=== PATIENT | female | born 1995 | race Caucasian/White ===

== ENCOUNTER 2018-01-11 16:52 | Emergency (ER) | payer MEDICAID ==
[~2018-01-11] VITALS: Ht 160 cm; Wt 86.4 kg
[2018-01-11] MEDS ORDERED: KETOROLAC TROMETHAMINE 30 MG/ML VIAL IM ONE (21:15)
[2018-01-11] MEDS ORDERED: LIDOCAINE HCL 5% TRANSDERMAL PATCH TD ONE (21:15)
[2018-01-11] MEDS ORDERED: METHOCARBAMOL 500 MG TABLET PO ONE (21:15)
[2018-01-11 23:17] VITALS: BP 137/62
== END 2018-01-11 23:21 | disposition home or self-care (01) ==
LOC: EMS 16:52
DX: M54.2 Cervicalgia (principal); M79.672 Pain in left foot; R03.0 Elevated blood-pressure reading, without diagnosis of hypertension; V49.40XA Driver injured in collision with unspecified motor vehicles in traffic accident, initial encounter; Y93.89 Activity, other specified; Y92.89 Other specified places as the place of occurrence of the external cause; Y99.8 Other external cause status
CPT/HCPCS: 72040; 73610; 73630; 81025; 96372; 99284; J1885

== ENCOUNTER 2019-02-04 21:22 | Emergency (ER) | payer MEDICAID, OTHER ==
[~2019-02-04] VITALS: Ht 160 cm; Wt 90.9 kg
[2019-02-04] MEDS ORDERED: CETI10TA59 PO (21:52)
[2019-02-05 01:32] LABS: INFLUENZA TYPE A NEGATIVE FOR TYPE A (NEGATIVE); INFLUENZA TYPE B NEGATIVE FOR TYPE B (NEGATIVE)
[2019-02-05] MEDS ORDERED: PredniSONE 20 MG TABLET PO ONE (01:45)
[2019-02-05 02:13] VITALS: BP 110/84
== END 2019-02-05 02:16 | disposition home or self-care (01) ==
LOC: EMS 21:23
DX: R05 Cough (principal)
CPT/HCPCS: 71046; 81025; 87804; 93005; 99284; J7512

== ENCOUNTER 2019-12-24 21:36 | Emergency (ER) | payer OTHER ==
[~2019-12-24] VITALS: Ht 172.7 cm; Wt 95.0 kg
[~2019-12-24 21:36] MED LIST: CETI-450 PO
[2019-12-24] MEDS ORDERED: KETOROLAC TROMETHAMINE 60 MG/2 ML VIAL IM ONE (23:30)
[2019-12-24 23:52] VITALS: BP 116/74
== END 2019-12-25 00:08 | disposition home or self-care (01) ==
LOC: EMS 21:36
DX: S13.4XXA Sprain of ligaments of cervical spine, initial encounter (principal); S46.912A Strain of unspecified muscle, fascia and tendon at shoulder and upper arm level, left arm, initial encounter; V49.9XXA Car occupant (driver) (passenger) injured in unspecified traffic accident, initial encounter; Y93.89 Activity, other specified; Y92.89 Other specified places as the place of occurrence of the external cause; Y99.8 Other external cause status
CPT/HCPCS: Z7502

== ENCOUNTER 2020-01-24 02:20 | Emergency (ER) | payer OTHER ==
[~2020-01-24] VITALS: Ht 160 cm; Wt 97.7 kg
[2020-01-24] MEDS ORDERED: ACET-66 PO (02:26)
[2020-01-24] MEDS ORDERED: PRED20 PO (02:26)
[2020-01-24] MEDS ORDERED: AMIT10TA6 PO (02:26)
[2020-01-24] MEDS ORDERED: DIAZEPAM 5 MG TABLET PO ONE (03:00)
[2020-01-24] MEDS ORDERED: LIDOCAINE 1% 10 ML VIAL INJ ONE (04:00)
[2020-01-24] MEDS ORDERED: ACETAMINOPHEN 325 MG TABLET PO ONE (04:00)
[2020-01-24 04:45] VITALS: BP 155/66
== END 2020-01-24 05:11 | disposition home or self-care (01) ==
LOC: EMS 02:20
DX: M62.838 Other muscle spasm (principal); M54.2 Cervicalgia; Z79.899 Other long term (current) drug therapy
CPT/HCPCS: 20552; 99284; J3490; 20550